=== PATIENT | female | born 1970 | race Caucasian/White ===

== ENCOUNTER 2020-02-19 16:36 | Emergency (ER) | payer OTHER, SELFPAY ==
[2020-02-19 16:57] VITALS: BP 163/96; PULSE 85; RESP 16; TEMP 37.8; O2SAT 99
--- NOTE | 2020-02-19 16:57 | ED.ANIMALBIT ---
HPI - Animal Bite General Chief Complaint: Animal Bite Stated Complaint: cat bite right hand Time Seen by Provider: 02/19/20 16:55 Source: patient Mode of arrival: ambulatory Limitations: no limitations History of Present Illness HPI narrative: Anne Piña is a 50 yo female with a PMH of anxiety who comes to express care with a cat bite from yesterday evening. Patient is from [place] and catheter last evening, on right wrist, area is mildly swollen and warm and tender but no induration no streaking no obvious pustule . Patient also needs a tetanus shot Related Data Home Medications Medication Instructions Recorded Confirmed Control Unknown 02/19/20 clonazepam [Klonopin] 0.25 mg PO DAILY 02/19/20 02/19/20 Allergies Allergy/AdvReac Type Severity Reaction Status Date / Time No Known Allergies Allergy Verified 02/19/20 17:01 Review of Systems Review of Systems: Narrative: CONSTITUTIONAL: Denies fever, chills, sweats. EYES: Denies visual changes, redness, discharge. ENT: Denies rhinorrhea, congestion, sore throat, otalgia. CARDIOVASCULAR: Denies chest pain, palpitations, edema. RESPIRATORY: Denies dyspnea, wheezing, cough GASTROINTESTINAL: Denies abdominal pain, nausea, vomiting, diarrhea. GENITOURINARY: Denies dysuria, hematuria, abnormal discharge SKIN: Denies rash or itching. Cat bite on right lateral wrist and base of thumb NEUROLOGIC: Denies numbness, or focal weakness. PSYCHIATRIC: Denies anxiety or depression. PMFSH Past Medical History Medical History Anxiety Family History Family History Other High cholesterol Social History Social History (Updated 02/19/20 @ 17:10 by Rosario Wallis CNP) Smoking status: Never smoker Alcohol intake: current Gender identity (if verbalized by the patient): Female Comments At time of signature, I agree with nursing past medical, surgical, social and family history. There is no relevant family history pertinent to the presenting complaint. Patient's blood pressure is elevated recommended follow-up with primary care physician Exam Narrative: Exam Narrative: GENERAL: This is a well-nourished, well-developed patient, in mild distress. HEAD: normocephalic, atraumatic. EYES: Sclera clear/white. Vision is grossly intact. EARS: External ears normal. Hearing grossly intact. NOSE: External nose normal without nasal discharge, nares without redness, no rhinorrhea. THROAT: Mucous membranes moist, NECK: Neck supple, CARDIOVASCULAR: Regular rate and rhythm without murmurs, gallops, or rubs. RESPIRATORY: Clear to auscultation. Breath sounds equal bilaterally. No wheezes, rales, or rhonchi. GASTROINTESTINAL: Abdomen soft, SKIN: warm, intact with no suspicious lesions or rash, good texture and turgor. Right wrist milderythema with no induration, will finger movement and wrist movement, tenderness to area NEURO: awake, alert, and oriented to person, place and time. There were no obvious focal neurologic abnormalities. Steady gait EXTREMITIES: Normal range of motion. BACK: Nontender without deformity Course Course Emergency Course: Started on Augmentin for cat bite and given tetanus booster Patient to monitor progression of erythema, go to ER if red streaking develops, take Augmentin until prescription is complete Vital Signs Vital signs: Vital Signs Temperature 100.0 F H 02/19/20 16:57 Pulse Rate 85 02/19/20 16:57 Respiratory Rate 16 02/19/20 16:57 Blood Pressure 163/96 H 02/19/20 16:57 Pulse Oximetry 99 02/19/20 16:57 Temperature 100.0 F H 02/19/20 16:57 Pulse Rate 85 02/19/20 16:57 Respiratory Rate 16 02/19/20 16:57 Blood Pressure 163/96 H 02/19/20 16:57 Pulse Oximetry 99 02/19/20 16:57 MDM - Animal Bite Differential Diagnosis Differential diagnosis: Likely bite by animal, cat bite and other
[2020-02-19] MEDS: TETANUS,DIPHTHERIA,AC PERTUSSIS ADULT (0.5 ML) BOOSTRIX IM (17:10)
== END 2020-02-19 17:26 | disposition home or self-care (01) ==
PROVIDERS: Emergency Provider Nurse Practitioner
DX: S61.551A Open bite of right wrist, initial encounter (principal); S61.451A Open bite of right hand, initial encounter; W55.01XA Bitten by cat, initial encounter; Z23 Encounter for immunization; F41.9 Anxiety disorder, unspecified
CPT/HCPCS: 90471; 90715; 99203; G0463